=== PATIENT | male | born 1980 | race Caucasian/White ===

== ENCOUNTER → 2024-03-04 | Day surgery (SDC) | payer MEDICAID ==
[~2024-03-04] VITALS: Ht 177.8 cm; Wt 68.0 kg
[~2024-03-04] MED LIST: BUPIVACAINE HCL/PF 0.5% (5MG/ML) 10ML ONE; LABETALOL 5MG/ML 4ML INJ IV PRN; MEPERIDINE HCL/PF 25MG/ML CPJ IV PRN; SKIN ADHESIVE 0.7 GM EA TOP ONE
[2024-03-04] MEDS: LACTATED RINGERS 1,000 ML IV SCH (06:31)
[2024-03-04] MEDS: LORAZEPAM 2MG/ML INJ IV NR (08:59)
[2024-03-04] MEDS: HYDROMORPHONE HCL/PF 2MG/ML INJ IV PRN (09:00)
[2024-03-04] MEDS: ONDANSETRON HCL 4MG/2ML INJ IV PRN (09:12)
[2024-03-04] MEDS: HYDROMORPHONE HCL/PF 2MG/ML INJ IV ONE (10:03)
[2024-03-04 10:34] VITALS: BP 117/80; PULSE 68; RESP 11
[2024-03-04] MEDS: ACETAMINOPHEN WITH CODEINE 300/30MG TABLET PO PRN (10:34)
== END | disposition home or self-care (01) ==
LOC: OR 05:34
PROVIDERS: ATTEND Surgery
DX: K80.10 Calculus of gallbladder with chronic cholecystitis without obstruction (principal); F41.9 Anxiety disorder, unspecified; Z79.899 Other long term (current) drug therapy; Z98.890 Other specified postprocedural states
CPT/HCPCS: 47562; 88304; J3490; J2060; J2405; J1170; J7030